=== PATIENT | male | born 1990 | race Caucasian/White ===

== ENCOUNTER 2017-08-07 15:35 | Emergency (ER) | payer OTHER ==
[~2017-08-07] VITALS: Ht 188 cm; Wt 81.7 kg
[~2017-08-07 15:35] MED LIST: ACETAMINOPHEN325 M1 PO; CEPHALEXIN500 MG PO; IBUPROFEN200 M1 PO; IBUPROFEN600 MG PO; MELOXICAM15 MG PO; NORCO 5-325 TA1 EACH PO; PAIN RELIEF EX500 MG PO; TRAMADOL HCL50 MG PO
[2017-08-07] MEDS ORDERED: CYCLOBENZAPRINE10 MG PO (19:52)
[2017-08-07] MEDS ORDERED: DICLOFENAC SODI75 MG PO (19:52)
== END 2017-08-07 16:00 | disposition short-term general hospital (02) ==
LOC: ED 15:35
DX: M54.5 Low back pain (principal); M54.6 Pain in thoracic spine

== ENCOUNTER 2017-08-07 19:02 | Emergency (ER) | payer OTHER ==
[~2017-08-07] VITALS: Ht 188 cm; Wt 81.7 kg
[2017-08-07] MEDS ORDERED: CYCLOBENZAPRINE10 MG PO (19:52)
[2017-08-07] MEDS ORDERED: DICLOFENAC SODI75 MG PO (19:52)
== END 2017-08-07 20:30 | disposition home or self-care (01) ==
LOC: ED 19:02
DX: M54.5 Low back pain (principal); Z79.899 Other long term (current) drug therapy
CPT/HCPCS: 72100; 99283

== ENCOUNTER 2018-09-06 22:52 | Emergency (ER) | payer OTHER ==
[~2018-09-06] VITALS: Ht 177.8 cm; Wt 96.6 kg
[~2018-09-06 22:52] MED LIST changes: +CYCLOBENZAPRINE10 MG PO; +DICLOFENAC SODI75 MG PO; +TESSALON PERLE100 MG PO; +VENTOLIN HFA18 GM INH
[2018-09-06] MEDS ORDERED: DEPAKOTE ER500 MG PO (23:04)
[2018-09-06] MEDS ORDERED: CEPHALEXIN500 MG PO (23:21)
[2018-09-06] MEDS ORDERED: TRAMADOL HCL50 MG PO (23:22)
== END 2018-09-06 23:41 | disposition home or self-care (01) ==
LOC: ED 22:52
DX: K08.89 Other specified disorders of teeth and supporting structures (principal); J45.909 Unspecified asthma, uncomplicated; F31.9 Bipolar disorder, unspecified; Z79.899 Other long term (current) drug therapy
CPT/HCPCS: 99282

== ENCOUNTER 2019-10-11 17:23 | Emergency (ER) | payer OTHER ==
[~2019-10-11] VITALS: Ht 177.8 cm; Wt 96.6 kg
[~2019-10-11 17:23] MED LIST changes: +DEPAKOTE ER500 MG PO
--- OUTSIDE RECORDS SUMMARY | 2019-10-11 17:26 | XMS ---
PreManage Notification: DOMINIQUE PINTO Security Marketing Planner Events No recent Security Events currently on file CRITERIA MET - [facility] Has Care Guidelines CARE PROVIDERS There are no care providers on record at this time. Guidelines Source: [facility] [place] Guidelines Date: 09/07/2018 Care Coordination: Mental health services are being provided by [facility].\T\nbsp; Please contact [facility] with mental health concerns.\T\nbsp; Sonali/Robinsonreyna Rodriguez: \T\nbsp; Ana: [phone]. E.D. VISIT COUNT (12 MO.) 1 [facility] TOTAL 1 NOTE: Visits indicate total known visits. ED/UCC VISIT TRACKING (12 MO.) 10/11/2019 17:23 [facility] [place] TYPE: Emergency COMPLAINT: - TOE PAIN, INJ INPATIENT VISIT TRACKING (12 MO.) No inpatient visits to display in this time frame [email or web address]
== END 2019-10-11 20:35 | disposition home or self-care (01) ==
LOC: ED 17:23
DX: S90.111A Contusion of right great toe without damage to nail, initial encounter (principal); J45.909 Unspecified asthma, uncomplicated; F31.9 Bipolar disorder, unspecified; Z88.0 Allergy status to penicillin; Z79.899 Other long term (current) drug therapy; W23.0XXA Caught, crushed, jammed, or pinched between moving objects, initial encounter
CPT/HCPCS: 73660; 99283-25

== ENCOUNTER 2019-11-17 10:12 | Emergency (ER) | payer OTHER ==
[~2019-11-17] VITALS: Ht 177.8 cm; Wt 104.3 kg
--- OUTSIDE RECORDS SUMMARY | 2019-11-17 10:14 | XMS ---
PreManage Notification: DOMINIQUE PINTO Security Lpn Cma Events No recent Security Events currently on file CRITERIA MET - [facility] Care Guidelines CARE PROVIDERS CHEIKH LAGOS Physician Capacitor Tester 10/14/2019-Current PHONE: [phone] Guidelines Source: [facility] Guidelines Date: 09/07/2018 Care Coordination: Mental health services are being provided by [facility].\T\nbsp; Please contact [facility] with mental health concerns.\T\nbsp; Sonali/Robinson Rodriguez: [phone]\T\nbsp; [place]: [phone]. E.D. VISIT COUNT (12 MO.) 2 [facility] TOTAL 2 NOTE: Visits indicate total known visits. 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
== END 2019-11-17 13:43 | disposition home or self-care (01) ==
LOC: ED 10:12
DX: K80.80 Other cholelithiasis without obstruction (principal); N23 Unspecified renal colic; J45.909 Unspecified asthma, uncomplicated; Z79.899 Other long term (current) drug therapy; Z88.0 Allergy status to penicillin
CPT/HCPCS: 74176; 80053; 81001; 83690; 85025; 96361; 96374; 96375; 99284-25; J1885; J2405; J7030

== ENCOUNTER 2021-04-20 16:11 | Emergency (ER) | payer OTHER ==
[~2021-04-20] VITALS: Ht 177.8 cm; Wt 99.8 kg
[2021-04-20] MEDS ORDERED: HYDROCODON-ACE1 EA10 PO (19:57)
== END 2021-04-20 20:43 | disposition home or self-care (01) ==
LOC: ED 16:11
DX: S29.012A Strain of muscle and tendon of back wall of thorax, initial encounter (principal); S50.12XA Contusion of left forearm, initial encounter; J45.909 Unspecified asthma, uncomplicated; Z88.0 Allergy status to penicillin; W10.9XXA Fall (on) (from) unspecified stairs and steps, initial encounter
CPT/HCPCS: 72070; 99283-25